=== PATIENT | male | born 2000 | race Caucasian/White ===

== ENCOUNTER 2018-03-05 03:46 | Emergency (ER) | payer OTHER ==
--- NOTE | 2018-03-05 03:50 | EDPHY ---
H & P Time Seen by Provider: 03/05/18 03:48 HPI/ROS: Chief Complaint: Alcohol intoxication, vomiting HPI: 16-year-old male who was [facility] in the [employer] [facility] intoxicated. Patient passed out after vomiting. Is unable to ambulate on their own. Patient brought in by EMS for further evaluation. No obvious signs of trauma per EMS. Patient admits to drinking 2 shots of vodka and beer. Denies falling down or hitting his head. He did vomited any ambulance. Was given Zofran and IV fluids. ROS: 10 systems were reviewed and were negative except those elements noted in the HPI. PMH: Denies Medications: Denies Social History: Positive for alcohol Family History: non-contributory Physical Exam: Gen: Awake, slurred speech, maintaining airway, smells of alcohol and emesis HEENT: Atraumatic Nose: no epistaxis or deformity Eyes: PERRLA, EOMI Mouth: Moist mucosa Neck: Supple, no step-offs or deformity Chest: Atraumatic, lungs clear to auscultation Heart: S1, S2 normal, no murmur Abd: Soft, non-tender, no guarding Back: Atraumatic Ext: no edema, atraumatic Skin: no rash Neuro: Sensation grossly intact, Strength 5/5 in bilateral upper and lower extremities (Rylan Mays) Constitutional: Initial Vital Signs Temperature (C) 36.6 C 03/05/18 03:50 Heart Rate 75 03/05/18 03:50 Respiratory Rate 16 03/05/18 03:50 Blood Pressure 104/62 03/05/18 03:50 O2 Sat (%) 96 03/05/18 03:50 O2 Delivery Mode Room Air Allergies/Adverse Reactions: No Known Allergies Allergy (Unverified 03/05/18 03:49) Home Medications: Medication Instructions Recorded NK [No Known Home Meds] 03/05/18 Medical Decision Making ED Course/Re-evaluation: 0630 Patient ambulating to the bathroom. Remains little unsteady on his feet. No further vomiting. (Rylan Mays) Patient ambulating without difficulty. Has a ride home. The no medical complaints. (Kojo Erazo) Departure - Departure Disposition: Home, Routine, Self-Care Clinical Impression: Alcoholic intoxication Qualifiers: Complication of substance-induced condition: uncomplicated Qualified Code(s): F10.920 - Alcohol use, unspecified with intoxication, uncomplicated Condition: Good Instructions: Alcohol Intoxication (ED) Referrals: Patient,NotPresent [Primary Care Provider] - As per Instructions
[2018-03-05 09:02] VITALS: BP 103/63
--- NOTE | 2018-03-05 10:03 | ASMTCMCOM ---
CM Note CM Note Notes: Patient is a freshman at studying [employer]. Patient reports that he is aware of the [facility] on campus and has been there recently. Encouraged patient to utilize this resource and pay attention to patterns of use that may be resulting in poor choices and consequences. Date Signed: 03/05/2018 10:02 AM Electronically Signed By:Kira Saldana RN
== END 2018-03-05 09:56 | disposition home or self-care (01) ==
DX: F10.920 Alcohol use, unspecified with intoxication, uncomplicated (principal)